=== PATIENT | male | born 1980 | race Caucasian/White ===

== ENCOUNTER 2017-12-24 22:37 | Emergency (ER) | payer SELFPAY ==
[~2017-12-24] VITALS: Ht 182.9 cm; Wt 95.3 kg
--- NOTE | 2017-12-24 22:58 | NUR ---
at bedside for MSE.
[2017-12-24] MEDS ORDERED: HYDROCODONE/APAP 5-325MG TABLET PO ONE (23:00)
[2017-12-24] MEDS ORDERED: TDAP DIPH,PERTUSS,TET VAC/PF 0.5 ML DISP.SYRIN IM ONE ×2 (23:00→23:24)
[2017-12-24] MEDS ORDERED: NEOMY/BACITRA/POLYMYXIN B OINT UD PACKET TP ONE ×2 (23:00→23:24)
[2017-12-24] MEDS ORDERED: LIDOCAINE HCL 1% 20 ML VIAL TP ONE (23:00)
[2017-12-24] MEDS ORDERED: LIDOCAINE HCL 1% 20 ML VIAL ONE (23:24)
[2017-12-24] MEDS ORDERED: HYDROCODONE/APAP 5-325MG TABLET ONE (23:28)
[2017-12-25] VITALS: BP 142/73
--- NOTE | 2017-12-25 | NUR ---
Patient discharged to home in stable conditon. Written and verbal after care instructions given. Patient verbalizes understanding of instructions. Ambulated from ER w/ steady gait.
== END 2017-12-25 00:01 | disposition home or self-care (01) ==
LOC: ER 22:38
DX: S61.012A Laceration without foreign body of left thumb without damage to nail, initial encounter (principal); Y93.89 Activity, other specified; W45.8XXA Other foreign body or object entering through skin, initial encounter; F17.200 Nicotine dependence, unspecified, uncomplicated; Y92.89 Other specified places as the place of occurrence of the external cause; Y99.8 Other external cause status
CPT/HCPCS: 12002; 90471; 90715; 99283; A4217; A4663; J3490